=== PATIENT | male | born 1945 | race Two or more races ===

== ENCOUNTER 2024-02-08 21:40 | Inpatient (IN) | payer BC, OTHER ==
[2024-02-08] MEDS: SODIUM CHLORIDE 0.9% 500 ML INFUS.BAG IV ONE ×3 (22:23→23:16)
[2024-02-08] MEDS ORDERED: cefTRIAXone SODIUM 1 GM VIAL ONE (22:38)
[2024-02-08 22:40] LABS: HEMATOCRIT 51.4 % (35.4-49); HEMOGLOBIN 16.6 GM/dL (11.7-16.9); MCH 30.4 pg (25.7-33.7); MCHC 32.3 g/dl (32.0-35.9); MEAN CELL VOLUME 94.1 fl (80-96); MEAN PLT VOLUME 9.3 fl (7.5-11.1); PLATELET COUNT 247 10^3/uL (134-434); RBC 5.46 M/mm3 (4.00-5.60); WHITE BLOOD COUNT 8.9 K/mm3 (4.0-10.0)
[2024-02-08 22:49] LABS: INR 1.06 (0.83-1.09); PROTHROMBIN TIME (PATIENT) 12.2 SEC (9.7-13.0)
[2024-02-08 23:01] LABS: POTASSIUM 3.5 mmol/L (3.5-5.1)
[2024-02-08 23:03] LABS: CALCIUM 8.4 mg/dL (8.5-10.1)
[2024-02-08 23:04] LABS: ALBUMIN 3.6 g/dl (3.4-5.0); BLOOD UREA NITROGEN 57.8 mg/dL (7-18)
[2024-02-08 23:07] LABS: CREATININE 5.9 mg/dL (0.55-1.3)
[2024-02-08 23:08] LABS: BILIRUBIN,TOTAL 1.2 mg/dL (0.2-1)
[2024-02-08 23:09] LABS: TOT PROT 6.9 g/dl (6.4-8.2)
[2024-02-08] MEDS: CEFTRIAXONE 1 GM in DEXTROSE 5%-WATER - 100 ML IVPB ONE (23:15)
[2024-02-08 23:17] LABS: ACTIVATED PTT 18.8 SECONDS (25.2-36.5)
[2024-02-08 23:22] LABS: LACTIC ACID 10.5 mmol/L (0.4-2.0)
[2024-02-08 23:29] LABS: VENOUS BASE EXCESS -14.4 mmol/L (-2-2)
[2024-02-08 23:31] LABS: EPI CELLS >36 /uL (0-25.1); HYALINE CASTS 2 /uL (0-3.1); URINE APPEARANCE CLOUDY; URINE BACTERIA 26 /uL (0-1359); URINE BILIRUBIN NEGATIVE (NEGATIVE); URINE COLOR ORANGE; URINE GLUCOSE (UA) NEGATIVE (NEGATIVE); URINE KETONE TRACE (NEGATIVE); URINE LEUK ESTERASE TRACE (NEGATIVE); URINE NITRITE NEGATIVE (NEGATIVE); URINE PROTEIN 2+ (NEGATIVE); URINE RBC 6225 /uL (0-23.9); URINE UROBILINOGEN 0.2 mg/dL (0.2-1.0); URINE WBC 60 /uL (0-25.8)
[2024-02-08 23:32] LABS: VENOUS PH 7.191 (7.310-7.410)
[2024-02-09] MEDS: SODIUM CHLORIDE 0.9% 500 ML INFUS.BAG IV ONE
[2024-02-09] MEDS: NOREPINEPHRINE BITARTRATE 4,000 MCG in DEXTROSE 5%-WATER - 496 ML IV SCH (00:12)
[2024-02-09 01:22] LABS: HEMATOCRIT 45.7 % (35.4-49); HEMOGLOBIN 15.1 GM/dL (11.7-16.9); MCH 30.5 pg (25.7-33.7); MCHC 33.1 g/dl (32.0-35.9); MEAN CELL VOLUME 92.1 fl (80-96); PLATELET COUNT 195 10^3/uL (134-434); RBC 4.96 M/mm3 (4.00-5.60); WHITE BLOOD COUNT 4.7 K/mm3 (4.0-10.0)
[2024-02-09 01:31] LABS: VENOUS BASE EXCESS -8.5 mmol/L (-2-2); VENOUS O2 SATURATION 35.5 % (70-80); VENOUS PCO2 38.1 mmHg (38-52); VENOUS PH 7.281 (7.310-7.410)
[2024-02-09 01:33] LABS: INR 1.22 (0.83-1.09); PROTHROMBIN TIME (PATIENT) 13.9 SEC (9.7-13.0)
[2024-02-09 01:35] LABS: ACTIVATED PTT 21.7 SECONDS (25.2-36.5)
[2024-02-09 01:47] LABS: CHLORIDE 107 mmol/L (98-107); POTASSIUM 3.9 mmol/L (3.5-5.1); POTASSIUM 4.6 mmol/L (3.5-5.1); SODIUM 140 mmol/L (136-145)
[2024-02-09 01:49] LABS: ANION GAP 16 mmol/L (4-13); BLOOD UREA NITROGEN 58.4 mg/dL (7-18); CO2 17 mmol/L (21-32); GLUCOSE,RANDOM 149 mg/dL (74-106)
[2024-02-09 01:52] LABS: ANION GAP 14 mmol/L (4-13); BLOOD UREA NITROGEN 59.5 mg/dL (7-18); CO2 19 mmol/L (21-32); CREATININE 5.4 mg/dL (0.55-1.3); GLUCOSE,RANDOM 147 mg/dL (74-106); MAGNESIUM 1.5 mg/dL (1.8-2.4)
[2024-02-09 01:55] LABS: CREATININE 5.3 mg/dL (0.55-1.3); PHOSPHOROUS 6.6 mg/dL (2.5-4.9); SGOT/AST 84 U/L (15-37); SGPT/ALT 44 U/L (13-61)
[2024-02-09 01:56] LABS: BILIRUBIN,TOTAL 0.8 mg/dL (0.2-1); CALCIUM 6.8 mg/dL (8.5-10.1); LACTIC ACID 6.7 mmol/L (0.4-2.0); TOT PROT 5.7 g/dl (6.4-8.2)
[2024-02-09 01:58] LABS: ALK PHOS 45 U/L (45-117)
[2024-02-09 02:03] LABS: ALBUMIN 2.8 g/dl (3.4-5.0); CALCIUM 6.9 mg/dL (8.5-10.1)
[2024-02-09 02:50] VITALS: BMI 25.9
[2024-02-09] MEDS: VANCOMYCIN/WATER FOR INJ (PEG) 1 GM/200 ML BAG IVPB ONE (03:36)
[2024-02-09] MEDS: MAGNESIUM SULFATE IN WATER 2 GM/50 ML IVPB IVPB ONE (03:36)
[2024-02-09] MEDS: VANCOMYCIN 1 GM PREMIX (F) 1 GM/200 ML BAG IVPB ONE (03:37)
[2024-02-09] MEDS: LACTATED RINGERS SOLUTION 1,000 ML/1,000 ML INFUS.BAG IV SCH (04:30)
[2024-02-09] MEDS: CALCIUM GLUCONATE 10% - 1,000 MG/10 ML VIAL IVPB ONE (04:58)
[2024-02-09] MEDS: PIPERACILLIN/TAZOB 2.25 GM 2.25 GM in DEXTROSE 5%-WATER - 50 ML IVPB SCH ×2 (04:58→14:57)
[2024-02-09] MEDS: MUPIROCIN 2% TOPICAL OINTMENT FOR DECOLONIZATION NS SCH (05:33)
[2024-02-09] MEDS: DEXMEDETOMIDINE PREMIX 400 MCG/100 ML BAG IVPB SCH (06:00)
[2024-02-09] MEDS ORDERED: HEPARIN NA (PORCINE) 5,000 UNITS/ML 1ML VIAL SQ SCH (06:00)
[2024-02-09] MEDS: PIPERACILLIN/TAZOB 2.25 GM 2.25 GM/50 ML BAG IVPB SCH ×2 (07:33→07:36)
[2024-02-09 07:44] LABS: POTASSIUM 3.3 mmol/L (3.5-5.1)
[2024-02-09 07:53] LABS: ALBUMIN 2.6 g/dl (3.4-5.0); BLOOD UREA NITROGEN 67.8 mg/dL (7-18); CALCIUM 7.2 mg/dL (8.5-10.1); MAGNESIUM 2.3 mg/dL (1.8-2.4)
[2024-02-09 07:55] LABS: CREATININE 5.7 mg/dL (0.55-1.3)
[2024-02-09 07:56] LABS: PHOSPHOROUS 3.6 mg/dL (2.5-4.9)
[2024-02-09 07:57] LABS: BILIRUBIN,TOTAL 0.8 mg/dL (0.2-1); TOT PROT 5.1 g/dl (6.4-8.2)
[2024-02-09] MEDS: KCL 10 MEQ IVPB 10 MEQ/100 ML INFUS.BAG IVPB SCH (08:45)
[2024-02-09] MEDS: NOREPINEPHRINE BITARTRATE/D5W 8 MG/250 ML BAG IVPB SCH (10:08)
[2024-02-09] MEDS ORDERED: VASopressin 20 UNITS/ML VIAL IV ONE (11:12)
[2024-02-09] MEDS: HYDROCORTISONE SOD SUCCINATE 100 MG/2 ML VIAL IVPUSH ONE (11:13)
[2024-02-09] MEDS: VASopressin 40 UNITS/100 ML BAG IV SCH (11:15)
[2024-02-09] MEDS ORDERED: HYDROCORTISONE SOD SUCCINATE 100 MG/2 ML VIAL IVPB SCH ×2 (12:11→14:00)
[2024-02-09 12:56] LABS: ARTERIAL BLD GAS O2 SATURATION 97.1 % (95-98); ARTERIAL BLOOD GAS BASE EXCESS -9.5 mmol/L (-2-2); ARTERIAL BLOOD GAS PO2 95.3 mmHg (80-100); ARTERIAL BLOOD GAS pH 7.354 (7.350-7.450)
[2024-02-09 13:47] LABS: HEMATOCRIT 43.9 % (35.4-49); HEMOGLOBIN 14.5 GM/dL (11.7-16.9); MCH 30.1 pg (25.7-33.7); MEAN CELL VOLUME 91.4 fl (80-96); MEAN PLT VOLUME 9.3 fl (7.5-11.1); PLATELET COUNT 201 10^3/uL (134-434); WHITE BLOOD COUNT 6.8 K/mm3 (4.0-10.0)
[2024-02-09 14:45] LABS: ANISOCYTOSIS 0; MACROCYTOSIS 0
[2024-02-09] MEDS ORDERED: PIPERACILLIN/TAZOB 2.25 GM 2.25 GM/50 ML BAG IVPB SCH ×2 (15:00→21:00)
[2024-02-09 15:30] VITALS: BP 115/68; PULSE 116; RESP 18; TEMP 97.2
[2024-02-09] MEDS ORDERED: PROPOFOL 1,000,000 MCG/100 ML VIAL ONE (16:02)
[2024-02-09] MEDS: ROCURONIUM BROMIDE 50 MG/5 ML VIAL IV ONE (16:20)
[2024-02-09] MEDS: ETOMIDATE 40 MG/20 ML VIAL IVPUSH ONE (16:20)
[2024-02-09] MEDS: HYDROCORTISONE SOD SUCCINATE 100 MG/2 ML VIAL IVPB SCH (17:43)
[2024-02-09] MEDS ORDERED: PIPERACILLIN/TAZOB 2.25 GM 2.25 GM in DEXTROSE 5%-WATER - 50 ML IVPB SCH (21:00)
[2024-02-09] MEDS ORDERED: CHLORHEXIDINE GLUCONATE 4% CLEANSER FOR DECOLONIZATION TP SCH (22:00)
== END 2024-02-09 16:39 | disposition short-term general hospital (02) | DRG 871 ==
LOC: JER 21:40 → JERBED 02-09 01:40 → JICU 02-09 02:52
PROVIDERS: ADMIT Internal Medicine Pulmonary Disease; ATTEND Internal Medicine Pulmonary Disease
PROC: 05HM33Z Insertion of Infusion Device into Right Internal Jugular Vein, Percutaneous Approach (ICD-10-PCS; principal; 2024-02-09)
PROC: B543ZZA Ultrasonography of Right Jugular Veins, Guidance (ICD-10-PCS; 2024-02-09)
PROC: 4A133B1 Monitoring of Arterial Pressure, Peripheral, Percutaneous Approach (ICD-10-PCS; 2024-02-09)
PROC: 4A133J1 Monitoring of Arterial Pulse, Peripheral, Percutaneous Approach (ICD-10-PCS; 2024-02-09)
PROC: 5A1935Z Respiratory Ventilation, Less than 24 Consecutive Hours (ICD-10-PCS; 2024-02-09)
PROC: 0BH17EZ Insertion of Endotracheal Airway into Trachea, Via Natural or Artificial Opening (ICD-10-PCS; 2024-02-09)
DX: A41.89 Other specified sepsis (principal); J18.9 Pneumonia, unspecified organism; R65.21 Severe sepsis with septic shock; J96.00 Acute respiratory failure, unspecified whether with hypoxia or hypercapnia; C90.00 Multiple myeloma not having achieved remission; K56.609 Unspecified intestinal obstruction, unspecified as to partial versus complete obstruction; E87.20 Acidosis, unspecified; N17.9 Acute kidney failure, unspecified; I24.89 Other forms of acute ischemic heart disease; K55.9 Vascular disorder of intestine, unspecified; N40.0 Benign prostatic hyperplasia without lower urinary tract symptoms; K59.00 Constipation, unspecified; I10 Essential (primary) hypertension; E78.5 Hyperlipidemia, unspecified; I12.9 Hypertensive chronic kidney disease with stage 1 through stage 4 chronic kidney disease, or unspecified chronic kidney disease; E11.22 Type 2 diabetes mellitus with diabetic chronic kidney disease; N18.9 Chronic kidney disease, unspecified; R41.82 Altered mental status, unspecified; K21.9 Gastro-esophageal reflux disease without esophagitis; M10.9 Gout, unspecified; K86.89 Other specified diseases of pancreas; R79.89 Other specified abnormal findings of blood chemistry; R14.0 Abdominal distension (gaseous); D69.6 Thrombocytopenia, unspecified; N28.1 Cyst of kidney, acquired; N20.0 Calculus of kidney
CPT/HCPCS: 0241U-QW; 31500; 36415; 36600; 71045-TC-FY; 71250-TC; 74176-TC; 80048; 80053; 81003; 82436; 82570; 82803; 82962; 83605; 83735; 84100; 84133; 84300; 84484; 85025; 85610; 85730; 86140; 86850; 86900; 86901; 87040; 87086; 87481; 87899; 93005; 93010; 93970-TC; 99285-25; J3490